=== PATIENT | male | born 1995 | race Caucasian/White ===

== ENCOUNTER 2021-06-13 13:17 | Emergency (ER) | payer MEDICAID, SELFPAY ==
[2021-06-13 13:18] VITALS: BP 126/81; PULSE 92; RESP 24; TEMP 36.4; BMI 57.7
--- NOTE | 2021-06-13 14:10 | CT_ITS ---
STUDY: CT ABDOMEN AND PELVIS WITHOUT CONTRAST REASON FOR EXAM: Male, 26 years old. Back pain RADIATION DOSAGE (If Supplied By Facility): CTDIvol = ( 34.45 ) mGy, DLP = ( 2100.46 ) mGycm TECHNIQUE: Transaxial images were obtained from the dome of the diaphragm to the symphysis pubis without oral contrast, and without intravenous contrast. Sagittal and coronal images were reconstructed. Individualized dose optimization techniques were used for this CT. COMPARISON: None. FINDINGS: The visualized lung bases are unremarkable. The visualized portions of the heart are within normal limits. Normal liver. Normal gallbladder and extrahepatic biliary system. Normal spleen. Normal pancreas. Normal bilateral adrenal glands. Normal right kidney. Normal left kidney. Normal visualized stomach. Normal small intestine. Normal colon. The appendix is not well-visualized. Normal abdominal aorta. Normal inferior vena cava. Normal retroperitoneum. Normal urinary bladder. Normal visualized prostate gland. There is a small umbilical hernia containing fat. Normal osseous structures. CT/Abdomen/Pelvis without Cont IMPRESSION: No acute intra-abdominal process is identified. Electronically Signed: Scottie Garcia MD at 16:04 EDT Tel , Service support ,
--- NOTE | 2021-06-13 14:15 | ED.VIS.BACK ---
HPI History of Present Illness Chief Complaint: Back Informant: patient Narrative Narrative: Patient presents for evaluation worsening radicular back pain over the past 2 weeks. States initially symptoms 6 months ago he states he was seen at 2 different ERs, he is placed on muscle relaxers which he thinks cyclobenzaprine. He never followed up with PCP. He states however over last 2 weeks symptoms worsening. Initially had left leg radiation and now right leg radiation. Denies any loss of bowel or bladder control. He states difficulty with bowel movements due to back spasms. No medications taken today. He tried leftover cyclobenzaprine with past 2 weeks with no relief. has not seen his PCP for 2 years due to losing his insurance however has a back currently. Denies any allergies. Denies history of stomach ulcers or kidney injury. Pain worse with movement. Patient reports brought by his friend, however needed wheelchair to get in the department. Prior similar symptoms: Yes [facility] Medical History (Updated 06/13/21 @ 17:[address] Pedro Sullivan DO) Sciatica Home Medications diazepam 5 mg PO Q8 PRN #10 tab 06/13/21 [Rx Last Taken Unknown] ibuprofen 600 mg PO Q6H PRN PRN #20 tab 06/13/21 [Rx Last Taken Unknown] oxycodone-acetaminophen [Percocet] 1 tab PO Q6H PRN 3 Days #12 tab 06/13/21 [Rx Last Taken Unknown] Allergy/AdvReac Type Severity Reaction Status Date / Time No Known Allergies Allergy Verified 06/13/21 14:48 Social History Smoking Status: Never smoker ROS ROS ED Constitutional Constitutional ED: Denies chills, fever(s) or sweats Eyes Eyes: Denies change in vision ENT ENT ED: Denies dysphagia or sore throat Cardiovascular Cardiovascular: Denies chest pain, leg edema, palpitations or racing heartbeat Respiratory/Chest Respiratory/Chest: Denies cough, dyspnea or dyspnea on exertion Gastrointestinal Gastrointestinal: Denies abdominal pain, diarrhea, nausea or vomiting Genitourinary Genitourinary ED: Denies dysuria, hematuria or urinary frequency Musculoskeletal Musculoskeletal: Reports back pain; Denies extremity pain or neck pain Integumentary Denies rash or wounds Neurologic Neurologic: Denies headache(s), paresthesias or weakness EXAM Physical Exam Const Vital Signs: 06/13/21 13:18 Temperature 97.6 F L Temperature Source Temporal Pulse Rate 92 Respiratory Rate 24 H Blood Pressure 126/81 H Blood Pressure Mean 96 Positive well nourished, well developed and obese Constitutional Narrative: Patient resting comfortably prior to back exam. General Appearance ED: well developed and NAD Nutritional Appearance: obese HEENT Reports moist mucous membranes normocephalic and atraumatic Eyes PERRL, EOMs intact bilaterally and conjunctivae normal General Eye ED: Yes normal appearance of both eyes Neck no lymphadenopathy and supple General: Negative for tenderness Chest Wall Chest: Negative for tenderness Resp normal respiratory effort and normal air movement Effort and Inspection: symmetric chest movement; Negative for respiratory distress Cardio regular rate, regular rhythm and no murmurs Peripheral Pulses: pulses 2+ throughout GI normal to inspection, nondistended, normoactive bowel sounds and non-tender Palpation: Negative for guarding or rebound tenderness present Back/Spine no CVA tenderness Back/Spine Narrative: Paralumbar tenderness bilaterally. Raising left leg cause significant pain in his lower back. However there is no radicular symptoms. 2+ patellar reflex on the left, 1+ patellar reflex on the right. Normal sensation distally. Vascular intact distally. Extremity normal to inspection General Extremety ED: Negative for edema or tenderness General Extremity: Negative for edema Neuro oriented x3 and no sensory deficits noted Sensorium / Orientation: awake and alert Skin no rashes or lesions noted and no wounds MDM MDM MDM Narrative Medical decision making narrative: Patient comfortable at rest however significant discomfort with movement of the legs. He was given IM Toradol subcu morphine and oral diazepam. He was sent for CT scan of his flank returning negative, review myself noting mild degenerative changes of the lumbar spine. There is no listhesis. Reevaluation is more comfortable. Patient ambulation with possible walker due to his BMI of 57, however he did not require the walker per nursing. Prescriptions for symptom control. He will follow-up with his PCP reevaluation and further treatment and therapy as an outpatient. All questions were answered. Radiography Diagnostic Testing: Radiology Impression Abdomen/Pelvis CT 06/13/21 14:10 IMPRESSION: No acute intra-abdominal process is identified. Electronically Signed: Scottie Garcia MD at 16:04 EDT Tel , Service support , Discharge Plan Triage Chief Complaint: Back ED Provider: Pedro Sullivan Dx/Rx/DC Orders Clinical Impression: Sciatica Instructions: ED Sciatica Prescriptions: New ibuprofen 600 MG tablet 600 mg PO Q6H PRN PRN (Reason: pain) Qty: 20 RF: 0 diazepam [diazepam] 5 MG tablet 5 mg PO Q8 PRN (Reason: Muscle Spasm) Qty: 10 RF: 0 oxycodone-acetaminophen [Percocet] 5-325 mg tablet 1 tab PO Q6H PRN (Reason: pain) 3 Days Qty: 12 RF: 0 Primary Care Provider: Vivek Hahn Referrals: Vivek Hahn DO [Primary Care Provider] - 2 Days Disposition Disposition: Home, Self Care Discharge Date/Time: 06/13/21 17:38
[2021-06-13] MEDS: Ketorolac 30 MG/ML Syringe IM (14:48)
[2021-06-13] MEDS: morphine 10 MG/ML Syringe 5 MG SC (14:49)
[2021-06-13] MEDS: diazePAM 5 MG Tablet PO (14:49)
== END 2021-06-13 17:38 | disposition home or self-care (01) ==
PROVIDERS: Emergency Provider Emergency Medicine; PCP Preventive Medicine Occupational Medicine
DX: M54.30 Sciatica, unspecified side (principal); M62.830 Muscle spasm of back; E66.9 Obesity, unspecified; Z68.43 Body mass index [BMI] 50.0-59.9, adult
CPT/HCPCS: 74176; 96372; 99283

== ENCOUNTER 2021-12-25 08:31 | Emergency (ER) | payer MEDICAID, SELFPAY ==
[2021-12-25 08:32] VITALS: BP 167/116; PULSE 96; RESP 18; TEMP 36.4; O2SAT 95; BMI 60.3
--- NOTE | 2021-12-25 09:05 | ED.VIS.BACK ---
HPI History of Present Illness Chief Complaint: Back Informant: patient Onset/Context/Timing Onset: Month(s) Quality: Aching and Throbbing Location: Lumbar Current Severity: Severe Maximum Severity: Severe Worsened by: improves with Movement Narrative Narrative: Patient present secondary to low back pain. Has been having problems with low back pain for several months and was seen here in the ER last June. At that time he had been having symptoms for weeks to months. Patient was diagnosed with sciatica. He is currently on Mobic and baclofen from his PCP which he states are not helping. He denies any new fall or injury. No fever or chills. No problems with bowel or bladder control. Patient states he was told to go to physical therapy but because of his pain has not yet done so. [facility] Medical History Sciatica Home Medications diazepam 5 mg PO Q8 PRN #10 tab 06/13/21 [Rx Last Taken Unknown] ibuprofen 600 mg PO Q6H PRN PRN #20 tab 06/13/21 [Rx Last Taken Unknown] oxycodone-acetaminophen [Percocet] 1 tab PO Q6H PRN 3 Days #12 tab 06/13/21 [Rx Last Taken Unknown] oxycodone-acetaminophen [Percocet] 1 tab PO Q6H PRN 3 Days #10 tab 12/25/21 [Rx Last Taken Unknown] prednisone See Taper PO DAILY #63 tab 12/25/21 [Rx Last Taken Unknown] Allergy/AdvReac Type Severity Reaction Status Date / Time No Known Allergies Allergy Verified 12/25/21 08:32 Social History Smoking Status: Never smoker ROS ROS ED Constitutional Constitutional ED: Denies chills or fever(s) Eyes Eyes: Denies change in vision ENT ENT ED: Denies sore throat Cardiovascular Cardiovascular: Denies chest pain Respiratory/Chest Respiratory/Chest: Denies cough or dyspnea Gastrointestinal Gastrointestinal: Denies abdominal pain, nausea or vomiting Genitourinary Genitourinary ED: Denies dysuria Musculoskeletal Musculoskeletal: Reports back pain Integumentary Denies rash Neurologic Neurologic: Denies headache(s) or paresthesias Allergic/Immunologic Allergic/Immunologic ED: Denies urticaria EXAM Physical Exam Const Vital Signs: 12/25/21 08:32 Temperature 97.6 F L Temperature Source Temporal Pulse Rate 96 Respiratory Rate 18 Blood Pressure 167/116 H Blood Pressure Mean 133 Pulse Ox 95 Oxygen Delivery Method Room Air Positive obese Nutritional Appearance: obese HEENT Reports moist mucous membranes Eyes PERRL and EOMs intact bilaterally Neck supple Resp normal respiratory effort and clear to auscultation bilaterally Cardio regular rate and regular rhythm GI normal to inspection, nondistended, normoactive bowel sounds, soft to palpation and non-tender Extremity normal to inspection Extremity Narrative: Strong distal pulses with normal sensation. Neuro oriented x3 Sensorium / Orientation: alert Psych mental status grossly normal Skin no rashes or lesions noted MDM [facility] Treatment and Re-Evaluation Narrative: Patient is currently on Mobic and baclofen. He has not taken his medications today. He is given IM injection of morphine, Toradol, Norflex. He will be given prescriptions for prednisone and Percocet. I advised him he must get up and move if he wants his back to get better. I encouraged him to follow-up with physical therapy as soon as possible. With no new injury I do not feel that repeat imaging is necessary. He has no fever or chills. Discharge Plan Triage Chief Complaint: Back ED Provider: Mariana Brunson Dx/Rx/DC Orders Clinical Impression: Back pain Instructions: ED Back Pain (Acute or Chronic) Prescriptions: New prednisone 10 mg tablet See Taper mg PO DAILY Qty: 63 RF: 0 oxycodone-acetaminophen [Percocet] 5-325 mg tablet 1 tab PO Q6H PRN (Reason: pain) 3 Days Qty: 10 RF: 0 No Action ibuprofen 600 MG tablet 600 mg PO Q6H PRN PRN (Reason: pain) Qty: 20 RF: 0 diazepam [diazepam] 5 MG tablet 5 mg PO Q8 PRN (Reason: Muscle Spasm) Qty: 10 RF: 0 oxycodone-acetaminophen [Percocet] 5-325 mg tablet 1 tab PO Q6H PRN (Reason: pain) 3 Days Qty: 12 RF: 0 Primary Care Provider: Vivek Hahn Referrals: Vivek Hahn DO [Primary Care Provider] - 1 Week Disposition Disposition: Home, Self Care
[2021-12-25] MEDS: morphine 10 MG/ML Syringe IM (09:24)
[2021-12-25] MEDS: Ketorolac 60 MG/2 ML Vial IM (09:25)
[2021-12-25] MEDS: Orphenadrine 60 MG/2 ML Ampul IM (09:27)
[2021-12-25 10:00] VITALS: BP 154/98; PULSE 77; RESP 16; O2SAT 95
== END 2021-12-25 10:09 | disposition home or self-care (01) ==
LOC: ED 09:21
PROVIDERS: Emergency Provider Emergency Medicine; PCP Preventive Medicine Occupational Medicine; Visit Provider Emergency Medicine
DX: M54.9 Dorsalgia, unspecified (principal); Z79.899 Other long term (current) drug therapy; E66.9 Obesity, unspecified
CPT/HCPCS: 96372; 99282

== ENCOUNTER 2022-11-06 15:15 | Emergency (ER) | payer MEDICAID, SELFPAY ==
[2022-11-06 15:16] VITALS: BP 128/87; PULSE 109; RESP 18; TEMP 37; O2SAT 98
[2022-11-06 15:26] VITALS: BMI 64.8
--- NOTE | 2022-11-06 15:34 | ED.VIS.LOWEX ---
HPI History of Present Illness Chief Complaint: Lower Extremity Injury Informant: patient Narrative Narrative: Left ankle injury 2 days while getting off the commode. He felt pain and then later swelling after getting up. Burning sensations. Concerns of cellulitis due to having this in the past. He has no fevers. He is not a diabetic. Chronic back pain for which he takes neuropathic medication followed by neurology. Denies history of gastric ulcers kidney injury or any irritable bowel disease. Prior similar symptoms: Yes PFSH PFS Medical History Sciatica Home Medications diazepam 5 mg tablet 5 mg PO Q8 PRN Muscle Spasm #10 tabs 06/13/21 [Rx Last Taken Unknown] ibuprofen 600 mg tablet 600 mg PO Q6H PRN PRN pain #20 tabs 06/13/21 [Rx Last Taken Unknown] oxycodone-acetaminophen 5 mg-325 mg tablet (Percocet) 1 tab PO Q6H PRN pain 3 days #12 tabs 06/13/21 [Rx Last Taken Unknown] oxycodone-acetaminophen 5 mg-325 mg tablet (Percocet) 1 tab PO Q6H PRN pain 3 days #10 tabs 12/25/21 [Rx Last Taken Unknown] prednisone 10 mg tablet See Taper PO DAILY #63 tabs 12/25/21 [Rx Last Taken Unknown] ibuprofen 600 mg tablet 600 mg PO Q6H PRN PRN pain #20 TABLETS 11/06/22 [Rx Last Taken Unknown] Allergy/AdvReac Type Severity Reaction Status Date / Time No Known Allergies Allergy Verified 11/06/22 15:19 Social History Smoking Status: Never smoker ROS ROS ED Constitutional Constitutional ED: Denies chills, fever(s) or sweats Eyes Eyes: Denies change in vision ENT ENT ED: Denies dysphagia or sore throat Cardiovascular Cardiovascular: Denies chest pain, leg edema, palpitations or racing heartbeat Respiratory/Chest Respiratory/Chest: Denies cough, dyspnea or dyspnea on exertion Gastrointestinal Gastrointestinal: Denies abdominal pain, diarrhea, nausea or vomiting Genitourinary Genitourinary ED: Denies dysuria, hematuria or urinary frequency Musculoskeletal Musculoskeletal: Reports extremity pain; Denies back pain or neck pain Integumentary Denies rash or wounds Neurologic Neurologic: Denies headache(s), paresthesias or weakness EXAM Physical Exam Const Vital Signs: 11/06/22 15:16 Temperature 98.6 F Temperature Source Temporal Pulse Rate 109 H Respiratory Rate 18 Blood Pressure 128/87 H Blood Pressure Mean 100 Pulse Ox 98 Oxygen Delivery Method Room Air Positive well nourished, well developed and obese General Appearance ED: well developed and NAD Nutritional Appearance: obese HEENT Reports moist mucous membranes normocephalic and atraumatic Eyes PERRL, EOMs intact bilaterally and conjunctivae normal General Eye ED: Yes normal appearance of both eyes Neck no lymphadenopathy and supple General: Negative for tenderness Chest Wall Chest: Negative for tenderness Resp normal respiratory effort and normal air movement Effort and Inspection: symmetric chest movement; Negative for respiratory distress Cardio regular rate, regular rhythm and no murmurs Peripheral Pulses: pulses 2+ throughout GI normal to inspection, nondistended, normoactive bowel sounds and non-tender Palpation: Negative for guarding or rebound tenderness present Back/Spine no CVA tenderness and no thoracic nor lumbar tenderness Extremity Extremity Narrative: Lower extremity: No knee pain no malleoli or tenderness there is slight swelling lateral malleolus tenderness of the ATFL and calcaneofibular region. There is very slight erythema, however this all blanches. No midfoot or proximal fifth base tenderness. Skin intact. He has extensive eczema changes with calcifications bilateral plantar foot, no drainage. General Extremety ED: Negative for edema or tenderness General Extremity: Negative for edema Neuro oriented x3 and no sensory deficits noted Sensorium / Orientation: awake and alert Skin no rashes or lesions noted and no wounds MDM MDM MDM Narrative Medical decision making narrative: Interventions / MDM: Differential diagnosis: Ankle sprain Diagnosis considered but do not suspect: Cellulitis however erythema blanches My EKG interpretation: N/A Imaging independently reviewed and interpreted by myself: Left ankle 3 views: Soft tissue swelling, no fracture. External documents reviewed: N/A Test considered but not ordered:N/A ED course: Patient treated ibuprofen x-ray negative for fracture. Exam pain ligamentous region. Erythema slight blanches therefore less likely cellulitis. Patient more reassured. Aircast provided. He will continue ibuprofen [id number] for the next 2 days then as needed. He will monitor symptoms. He will follow-up as an outpatient. Return precautions. All questions were answered. Re-evaluation: stable Disposition discussed with patient/family/significant other: Patient and family Case discussed with consulting clinician: N/A History & Record Review Discussion w/independent historian: Patient Radiography Diagnostic Testing: Clinical Impression(s) from Imaging Studies Ankle X-Ray 11/06/22 15:45 IMPRESSION: Circumferential soft tissue swelling without finding of underlying fracture or subluxation. Electronically Signed: Anibal Escobar MD at 16:48 EST , Discharge Plan Triage Chief Complaint: Lower Extremity Injury ED Provider: Pedro Sullivan Dx/Rx/DC Orders Clinical Impression: Left ankle sprain, Ankle swelling Instructions: ED Ankle Sprain (Adult) Prescriptions: New ibuprofen 600 mg tablet 600 mg PO Q6H PRN PRN (Reason: pain) Qty: 20 0RF No Action ibuprofen 600 MG tablet 600 mg PO Q6H PRN PRN (Reason: pain) Qty: 20 0RF diazepam [diazepam] 5 MG tablet 5 mg PO Q8 PRN (Reason: Muscle Spasm) Qty: 10 0RF oxycodone-acetaminophen [Percocet] 5-325 mg tablet 1 tab PO Q6H PRN (Reason: pain) 3 Days Qty: 12 0RF prednisone 10 mg tablet See Taper PO DAILY Qty: 63 0RF Taper: Prednisone Taper 60 mg WITH BREAKFAST for 3 Days and 0 Hour 50 mg WITH BREAKFAST for 3 Days and 0 Hour 40 mg WITH BREAKFAST for 3 Days and 0 Hour 30 mg WITH BREAKFAST for 3 Days and 0 Hour 20 mg WITH BREAKFAST for 3 Days and 0 Hour 10 mg WITH BREAKFAST for 3 Days and 0 Hour oxycodone-acetaminophen [Percocet] 5-325 mg tablet 1 tab PO Q6H PRN (Reason: pain) 3 Days Qty: 10 0RF Primary Care Provider: Vivek Hahn Referrals: Vivek Hahn DO [Primary Care Provider] - 3-5 Days Activity Restrictions/Additional Instructions: X-ray a negative. Continue ibuprofen [id number] for the next 2 days then as needed. No clinical suspicion for cellulitis at this time. If you develop fevers redness tracks up the leg, return or discussed with your PCP. Disposition Disposition: Home, Self Care Discharge Date/Time: 11/06/22 16:27
[2022-11-06] MEDS: Ibuprofen 600 MG Tablet PO (15:37)
--- NOTE | 2022-11-06 15:45 | RAD_ITS ---
INDICATION: Injury, lateral left ankle pain EXAMINATION/TECHNIQUE: X-RAY - LEFT XR Ankle Min 3 Views 3 VIEWS COMPARISON: None. FINDINGS: SOFT TISSUES: Circumferential soft tissue swelling. No gas or radiopaque foreign body. BONES/JOINTS: No acute fracture or subluxation. Normal appearance of the ankle mortise and subtalar joint. No sclerotic or destructive changes observed. RAD/Ankle min 3 Views IMPRESSION: Circumferential soft tissue swelling without finding of underlying fracture or subluxation. Electronically Signed: Anibal Escobar MD at 16:48 EST ,
== END 2022-11-06 16:27 | disposition home or self-care (01) ==
PROVIDERS: Emergency Provider Emergency Medicine; PCP Preventive Medicine Occupational Medicine; Visit Provider Emergency Medicine
DX: S93.402A Sprain of unspecified ligament of left ankle, initial encounter (principal); G89.29 Other chronic pain; M54.9 Dorsalgia, unspecified; E66.9 Obesity, unspecified; X58.XXXA Exposure to other specified factors, initial encounter
CPT/HCPCS: 73610; 99283

== ENCOUNTER 2022-12-23 11:52 | Emergency (ER) | payer MEDICAID, SELFPAY ==
[2022-12-23 11:53] VITALS: BP 151/95; PULSE 105; RESP 16; TEMP 36.2; O2SAT 96
--- NOTE | 2022-12-23 12:09 | ED.VIS.LOWEX ---
HPI History of Present Illness Chief Complaint: Lower Extremity Injury Narrative Narrative: 27-year-old male presents with left knee pain that began last week and has slowly been increasing over time. He denies any injury or fall onto his left knee, but states he has problems with chronic back pain, unable to take any of his medications because he has been out of them since his insurance changed. He states that he has sharp pain with standing and walking that began last week. His progressed to a constant, throbbing pain even when he remains still. He denies any chest pain or shortness of breath, no loss of bowel or bladder, no other symptoms. He states he has not had problems with his knees in the past. [facility] Medical History Sciatica Home Medications diazepam 5 mg tablet 5 mg PO Q8 PRN Muscle Spasm #10 tabs 06/13/21 [Rx Last Taken Unknown] ibuprofen 600 mg tablet 600 mg PO Q6H PRN PRN pain #20 tabs 06/13/21 [Rx Last Taken Unknown] oxycodone-acetaminophen 5 mg-325 mg tablet (Percocet) 1 tab PO Q6H PRN pain 3 days #12 tabs 06/13/21 [Rx Last Taken Unknown] oxycodone-acetaminophen 5 mg-325 mg tablet (Percocet) 1 tab PO Q6H PRN pain 3 days #10 tabs 12/25/21 [Rx Last Taken Unknown] prednisone 10 mg tablet See Taper PO DAILY #63 tabs 12/25/21 [Rx Last Taken Unknown] ibuprofen 600 mg tablet 600 mg PO Q6H PRN PRN pain #20 TABLETS 11/06/22 [Rx Last Taken Unknown] ibuprofen 600 mg tablet 600 mg PO Q8H PRN PRN pain #20 TABLETS 12/23/22 [Rx Last Taken Unknown] Allergy/AdvReac Type Severity Reaction Status Date / Time No Known Allergies Allergy Verified 12/23/22 11:55 Social History Smoking Status: Never smoker ROS ROS ED ROS Narrative Constitutional: No fever, no chills. HEENT: No sore throat. No neck pain. No loss of vision. No rhinorrhea. Cardiovascular: No chest pain. No palpitations. No pedal edema. Respiratory: No cough, no shortness of breath. Abdominal: No abdominal pain. No nausea. No vomiting. Genitourinary: No dysuria. No hematuria. Musculoskeletal: No myalgias. Left knee pain, sharp, stabbing, and also throbbing, just below the kneecap. Neurologic: No headaches. No dizziness. No lightheadedness. Skin: No rash. No change in color. Psychiatric: No depression. No anxiety. EXAM Physical Exam Narrative Exam Narrative: Afebrile. Vital signs noted. HEENT: Normocephalic. Atraumatic. PERRL, EOMI. Neck soft and supple. No point tenderness or step off. Cardiovascular: Regular rate and rhythm. No murmurs, rubs, or gallops appreciated. Respiratory: No tachypnea. Lungs clear to auscultation bilaterally. Gastrointestinal: Abdomen soft, nontender, with normoactive bowel sounds. No rebound or guarding. Neurological: Awake. Alert. Nonfocal, nonlateralizing. Skin: No rash. Normal color. No pallor. Musculoskeletal: No pedal edema. Decreased range of motion left knee secondary to pain, flexion and extension mechanism intact. Palpable dorsalis pedis pulse. Mild tenderness to palpation along medial and lateral meniscal line. No crepitance. Const Vital Signs: 12/23/22 11:53 Temperature 97.1 F L Temperature Source Temporal Pulse Rate 105 H Respiratory Rate 16 Blood Pressure 151/95 H Blood Pressure Mean 113 Pulse Ox 96 Oxygen Delivery Method Room Air MDM MDM MDM Narrative Medical decision making narrative: Lower in the differential is DVT. This is less likely given no overt swelling or color change, no risk factors. I am also not as suspicious for tibial plateau fracture as he has not had a fall. Rather, I do feel that his pain may be secondary to degenerative joint disease compounded by obesity. I will obtain x-rays to look for joint space narrowing. He was given ibuprofen 800 mg here in the emergency department for analgesia. I do not feel that narcotic pain medication is currently indicated although he has received prescriptions for Percocet in the past. I reviewed and individually interpreted his right knee x-ray in 4 views and see no evidence of fracture or large effusion. I also reviewed the radiology report which confirms my independent interpretation. At this point in time, I feel he can be discharged safely home with follow-up to orthopedics. I wrote him a prescription for ibuprofen 600 mg #20 that he can take every 8 hours for pain. He was placed in an Dmitriy wrap over his left knee and told to continue ice and elevation of his left knee as needed. Return instructions to the emergency department were reviewed. Disposition is discharged home in stable condition. Radiography Diagnostic Testing: Clinical Impression(s) from Imaging Studies Knee X-Ray 12/23/22 12:20 IMPRESSION: Normal x-ray examination of the knee. Electronically Signed: Abhay Tse MD at 12:36 EDT , Discharge Plan Triage Chief Complaint: Lower Extremity Injury ED Provider: Wilfred Mcclelland Dx/Rx/DC Orders Clinical Impression: Arthralgia of knee, right Instructions: ED Bandage Elastic Wrap, ED Arthralgia, ED Knee Pain of Uncertain Cause Prescriptions: New ibuprofen 600 mg tablet 600 mg PO Q8H PRN PRN (Reason: pain) Qty: 20 0RF No Action ibuprofen 600 MG tablet 600 mg PO Q6H PRN PRN (Reason: pain) Qty: 20 0RF diazepam [diazepam] 5 MG tablet 5 mg PO Q8 PRN (Reason: Muscle Spasm) Qty: 10 0RF oxycodone-acetaminophen [Percocet] 5-325 mg tablet 1 tab PO Q6H PRN (Reason: pain) 3 Days Qty: 12 0RF prednisone 10 mg tablet See Taper PO DAILY Qty: 63 0RF Taper: Prednisone Taper 60 mg WITH BREAKFAST for 3 Days and 0 Hour 50 mg WITH BREAKFAST for 3 Days and 0 Hour 40 mg WITH BREAKFAST for 3 Days and 0 Hour 30 mg WITH BREAKFAST for 3 Days and 0 Hour 20 mg WITH BREAKFAST for 3 Days and 0 Hour 10 mg WITH BREAKFAST for 3 Days and 0 Hour oxycodone-acetaminophen [Percocet] 5-325 mg tablet 1 tab PO Q6H PRN (Reason: pain) 3 Days Qty: 10 0RF ibuprofen 600 mg tablet 600 mg PO Q6H PRN PRN (Reason: pain) Qty: 20 0RF Primary Care Provider: Vivek Hahn Referrals: Vivek Hahn DO [Primary Care Provider] - Hong Zheng MD [Med Staff - Active Staff] - As soon as possible Disposition Disposition: Home, Self Care
[2022-12-23] MEDS: Ibuprofen 400 MG Tablet 800 MG PO (12:17)
--- NOTE | 2022-12-23 12:20 | RAD_ITS ---
STUDY: X-RAY - LEFT KNEE REASON FOR EXAM: Male, 27 years old. Nontraumatic left knee pain. TECHNIQUE: 4 view(s) of the knee. COMPARISON: None. FINDINGS: Normal visualized distal femur. Normal visualized proximal tibia and fibula. Normal proximal tibiofibular articulation. Normal medial femorotibial compartment. Normal lateral femorotibial compartment. Normal patellofemoral articulation. The soft tissue structures are unremarkable. RAD/Knee 4 or More Views IMPRESSION: Normal x-ray examination of the knee. Electronically Signed: Abhay Tse MD at 12:36 EDT ,
== END 2022-12-23 13:05 | disposition home or self-care (01) ==
PROVIDERS: Emergency Provider Emergency Medicine; PCP Preventive Medicine Occupational Medicine; Visit Provider Emergency Medicine
DX: M25.562 Pain in left knee (principal); G89.29 Other chronic pain; M54.9 Dorsalgia, unspecified
CPT/HCPCS: 73564; 99282

== ENCOUNTER 2023-12-06 19:52 | Emergency (ER) | payer MEDICAID, SELFPAY ==
[2023-12-06 19:53] VITALS: BP 150/87; PULSE 91; RESP 15; TEMP 36.5; O2SAT 94
[2023-12-06 20:12] VITALS: BMI 63.2
--- NOTE | 2023-12-06 20:28 | EX.ED.DYSGE1 ---
HPI History of Present Illness Chief Complaint: General Illness Informant: patient Onset/Context/Timing Onset: Today Context: Sudden Onset Timing: Continuous Quality: Like my brain is boiling in my skull Location: Generalized Worsened by: Nothing Relieved by: Nothing Narrative Narrative: Patient presents with headache and bodyaches that began earlier this morning. Patient states he woke up around 2 AM today with headache. Patient states the pain is constant. Patient states he feels achy all over. Patient states it feels like my brain is boiling in my skull. Patient states it is diffuse across his entire head. Patient states nothing makes it better and nothing makes it worse. Patient admits to some subjective fevers and chills. Patient admits to some nausea and dry heaves. Patient admits to a sore throat. [facility] Medical History Sciatica Home Medications amlodipine 5 mg tablet 5 mg PO DAILY 12/06/23 [History Last Taken Unknown] baclofen 10 mg tablet 10 mg PO TID 12/06/23 [History Last Taken Unknown] tramadol 50 mg tablet 50 mg PO Q6H PRN PRN pain 12/06/23 [History Last Taken Unknown] Allergy/AdvReac Type Severity Reaction Status Date / Time No Known Allergies Allergy Verified 12/06/23 19:57 Surgical History no surgical history no surgical history Social History Smoking Status: Never smoker ROS ROS ED Constitutional Constitutional ED: Reports chills, fever(s) and subjective Eyes Eyes: Denies blurry vision or change in vision ENT ENT ED: Reports sore throat; Denies rhinorrhea Cardiovascular Cardiovascular: Denies chest pain or palpitations Respiratory/Chest Respiratory/Chest: Reports dyspnea; Denies cough Gastrointestinal Gastrointestinal: Reports nausea; Denies vomiting Genitourinary Genitourinary ED: Denies dysuria or hematuria Musculoskeletal Musculoskeletal: Reports back pain and neck pain Integumentary Denies abscess or rash Neurologic Neurologic: Reports headache(s); Denies weakness Allergic/Immunologic Allergic/Immunologic ED: Denies mouth swelling or urticaria EXAM Physical Exam Const Vital Signs: 12/06/23 19:53 12/06/23 20:12 Temperature 97.7 F L Temperature Source Oral Pulse Rate 91 Respiratory Rate 15 Respiratory Effort Short of Breath Blood Pressure 150/87 H Blood Pressure Mean 108 Pulse Ox 94 Oxygen Delivery Method Room Air Positive well nourished, well developed and obese General Appearance ED: well developed and NAD Nutritional Appearance: obese HEENT Reports moist mucous membranes Neck supple and no JVD Resp normal respiratory effort and clear to auscultation bilaterally Cardio regular rate and regular rhythm GI non-tender and non-distended Palpation: soft Neuro oriented x3, CN's II-XII intact bilaterally and no sensory deficits noted Sensorium / Orientation: alert Motor Exam: strength 5/5 throughout MDM MDM MDM Narrative Medical decision making narrative: Differential diagnosis includes viral illness, intracranial bleeding, migraine headache, and tension headache. CT scan of the brain will be obtained to assess for intracranial bleeding. COVID-19, influenza, and RSV PCR will be obtained to assess for viral infection. CBC will be obtained to assess for leukocytosis and anemia. Basic metabolic profile will be obtained to assess for electrolyte abnormality and renal function. Lab Data Attestation: I reviewed the patient's lab results. Lab results narrative: CBC was reviewed and was within normal limits. Basic metabolic profile was reviewed and was within normal limits. COVID-19 PCR was reviewed and was positive. Influenza PCR was reviewed and was negative for influenza A and influenza B. RSV PCR was reviewed and was negative. Labs: Laboratory Results - last 24 hr 12/06/23 20:48 WBC 7.6 RBC 5.37 Hgb 14.5 Hct 45.2 MCV 84.2 MCH 27.0 MCHC 32.1 RDW Std Deviation 41.6 RDW Coeff of Mahesh 13.4 Plt Count 256 MPV 11.4 Immature Gran % (Auto) 0.300 Neut % (Auto) 67.1 Lymph % (Auto) 7.5 L Ripley % (Auto) 17.7 H Eos % (Auto) 6.7 H Baso % (Auto) 0.7 Absolute Neuts (auto) 5.1 Absolute Lymphs (auto) 0.57 L Nucleated RBC % 0 Differential Comment SEE COMMENT Platelet Estimate ADEQUATE Plt Morphology Comment LARGE RBC Morphology N CHROM Anisocytosis RARE Ovalocytes RARE Sodium 137 Potassium 3.7 Chloride 105 Carbon Dioxide 25.0 Anion Gap 7 BUN 9 Creatinine 1.03 Estim Creat Clear Calc 219.07 Est GFR (MDRD) Af Amer 109 Est GFR (MDRD) Non-Af 90 BUN/Creatinine Ratio 8.7 L Glucose 107 H Calcium 9.5 Radiography Diagnostic Testing: CT scan of the brain was obtained. There is no acute intracranial abnormality. This was interpreted by the radiologist and was also independently reviewed by myself. Treatment and Re-Evaluation :: Patient was given IV fluids, Reglan, and Benadryl. Patient is feeling better on reevaluation. Patient was advised of his findings. Patient was instructed to take Tylenol or ibuprofen as needed for pain. Patient was instructed to quarantine himself for the next 48 hours. Patient was instructed to wear a mask. Patient was instructed to follow-up with his primary care physician in 5 to 7 days. Patient understood and was agreeable with the plan. All questions were answered. Discharge Plan Triage Chief Complaint: General Illness ED Provider: Vijay Goddard Dx/Rx/DC Orders Clinical Impression: COVID-19, Morbid obesity Instructions: Coronavirus Disease 2019 (COVID-19): Caring for Yourself or Others Prescriptions: No Action amlodipine 5 mg tablet 5 mg PO DAILY tramadol 50 mg tablet 50 mg PO Q6H PRN PRN (Reason: pain) baclofen 10 mg tablet 10 mg PO TID Primary Care Provider: Vivek Hahn Referrals: Vivek Hahn DO [Primary Care Provider] - 5-7 Days Disposition Disposition: Home, Self Care
--- NOTE | 2023-12-06 20:35 | CT_ITS ---
INDICATION: Headache EXAMINATION: CT BRAIN - CT Head or Brain W/O Contrast Injection TECHNIQUE: Multiple axial images were obtained of the head without intravenous contrast. A radiation dose optimization technique was used for this scan. IV Contrast dosage and agent: None. COMPARISON: No relevant prior comparison studies available. FINDINGS: BRAIN PARENCHYMA: No intra- or extra-axial hemorrhage. No intracranial mass or mass effect. Rodgers/white matter differentiation is maintained and there is no blurring of the basal ganglia. There is no hyperdense vessel. Posterior fossa structures are unremarkable. CSF SPACES: Appropriate for age. No hydrocephalus. Basal cisterns are patent. CALVARIUM, SKULL BASE, PARANASAL SINUSES AND MASTOID AIR CELLS: Intact calvarium and skull base. No fracture or osseous lesion. Paranasal sinuses are clear. Note of somewhat hypoplastic maxillary sinuses and well-pneumatized frontal sinuses. Mastoid air cells and middle ears are clear. ORBITS: Both globes, extraocular muscles, optic nerves and retrobulbar fat appear unremarkable. ASPECTS Score for Acute Strokes: 10 CT/Brain/Head without Contrast IMPRESSION: No acute intracranial pathology. Electronically Signed: Guillermo Samaniego DO at 22:23 EDT ,
[2023-12-06] MEDS: 0.9% Normal Saline (1000mL) 1,000 ML 1000 ML IV (20:49)
[2023-12-06] MEDS: DiphenhydrAMINE 50 MG/ML Syringe 25 MG IV (20:50)
[2023-12-06] MEDS: Metoclopramide 10 MG/2 ML Vial IV (20:51)
[2023-12-06 20:54] LABS: Absolute Lymphocyte Count 0.57 X10^3/uL (0.83-4.51); Absolute Neutrophil Count 5.1 X10^3/uL (2.0-7.7); Basophil# 0.05 X10^3/uL; Basophil% 0.7 % (0-1); Eosinophil# 0.51 X10^3/uL; Eosinophils% 6.7 % (0-5); Hematocrit 45.2 % (40-54); Hemoglobin 14.5 g/dL (13.0-16.5); Lymphocyte # 0.57 X10^3/ul (0.83-4.51); Lymphocyte % 7.5 % (19-41); Mean Corp Hgb Conc 32.1 g/dL (32-36); Mean Corpuscular Volume 84.2 fL (80-94); Mean Platelet Vol. 11.4 fl (6.2-12.0); Monocyte# 1.34 X10^3/uL; Monocyte% 17.7 % (0-10); NRBC Flagged by Analyzer 0 % (0-5); Neutrophil % 67.1 % (47-70); POSITIVE DIFFERENTIAL YES; Platelet Count 256 K/mm3 (150-450); RBC Distribution Width CV 13.4 % (11.6-14.6); RBC Distribution Width SD 41.6 fl (35.1-43.9); Red Blood Count 5.37 M/mm3 (4.6-6.2); White Blood Count 7.6 K/mm3 (4.4-11.0)
[2023-12-06 21:07] LABS: Anion Gap 7 (5-15); BUN 9 mg/dL (7-18); BUN/Creat Ratio 8.7 RATIO (10-20); Calcium,Total 9.5 mg/dL (8.5-10.1); Chloride 105 mmol/L (98-107); Creatinine, Serum 1.03 mg/dL (0.70-1.30); EST Glomerular Filtration Rate 90 mL/min (>60); Est Glom Filt Rate - Afr Amer 109 mL/min (>60); Estimated Creatinine Clearance 219.07 ml/min; Glucose 107 mg/dL (74-106); Potassium 3.7 mmol/L (3.5-5.1); Sodium Level 137 mmol/L (136-145)
[2023-12-06 21:13] LABS: Differential Indicated SCAN CRITERIA MET
[2023-12-06 21:35] LABS: Anisocytosis RARE; Platelet Estimate ADEQUATE (ADEQ); Platelet Morphology LARGE; Red Cell Morphology N CHROM NORMAL (NORM C&C)
[2023-12-06 21:36] LABS: Ovalocyte RARE
[2023-12-06 21:52] VITALS: BP 134/77; PULSE 91; RESP 16; O2SAT 97
[2023-12-06 22:24] VITALS: BP 130/79; PULSE 86; RESP 16; TEMP 36.6; O2SAT 97
== END 2023-12-06 22:28 | disposition home or self-care (01) ==
PROVIDERS: Emergency Provider Emergency Medicine; PCP Preventive Medicine Occupational Medicine; Visit Provider Emergency Medicine
DX: U07.1 COVID-19 (principal); E66.01 Morbid (severe) obesity due to excess calories
CPT/HCPCS: 70450; 80048; 85025; 87631; 96361; 96374; 96375; 99283; J7030; A4216